=== PATIENT | female | born 1955 | race Caucasian/White ===

== ENCOUNTER → 2016-12-26 | Outpatient (CLI) | payer BC ==
--- NOTE | ~2016-12-26 | CT57 ---
[facility] RADIOLOGY TEXT RESULTS PATIENT: DAVID TINOCO LOCATION: [facility] : 57 UNIT #: [id number] AGE: [address]: Antonio Acosta MD SEX: F ORDER DR: [id number] [facility]. [place], [place] [address] [id number] O MR#: [id number] Acc #: [id number] NAME: DAVID TINOCO : 1955 SEX: F STUDY DATE/TIME: 12/26/2016 11:24 UNIT: [facility] ROOM: STUDY DESCRIPTION: CT Chest Wo Cont Attending Physician: Antonio Acosta M.D. Referring Physician: Antonio Acosta M.D. Ordering Physician: Antonio Acosta M.D. Primary Care Physician: Generic Doctor Not In System MEDICAL IMAGING REPORT This report is preliminary unless electronic signature is present EXAM Chest CT without contrast high resolution. HISTORY Bronchiectasis with chronic asthma. Evaluate for progression of interstitial lung disease over time. COMPARISON 02/07/2016. TECHNIQUE Axial imaging was obtained through the chest with high-resolution technique Both prone and supine. Expiration imaging was performed at multiple sites as well. Images were evaluated at lung and mediastinal windows. This CT exam was performed with one or more of the following radiation dose reduction techniques: Automatic exposure control, adjustment of mA and/or kV according to patient size, and iterative reconstruction. FINDINGS Chest images at mediastinal window show no enlarged mediastinal or hilar lymph nodes. There is no evidence of pleural or pericardial fluid. Images at lung window show a mild as central bronchiectasis in both lower lobes. This has not progressed significantly since the previous examination. There is no evidence of mucus plugging and no new infiltrates are seen. Linear plate-like atelectasis at the right base seen on the previous examination has resolved. No significant air trapping is seen on expiration imaging. IMPRESSION Mild central bronchiectasis bilaterally predominately in the lower lobes showing no significant change from previous exam. No new infiltrates are [facility] RADIOLOGY TEXT RESULTS PATIENT: DAVID TINOCO LOCATION: [facility] #: [id number] : 57 UNIT #: [id number] AGE: [address]: Antonio Acosta MD SEX: F ORDER DR: seen. The lungs are clear otherwise. STAT * RESULT Dictated by... Dakota Hampton M.D. THIS IS AN ELECTRONICALLY VERIFIED REPORT Dakota Hampton M.D. at 12/27/2016 10:23 AM JANNETTE/alexy TD: 12/26/2016 12:12 JOB #: [id number] MEDICAL IMAGING REPORT Page 1 of 1 COPY
== END | disposition home or self-care (01) ==
LOC: CCAT 10:50
DX: J45.909 Unspecified asthma, uncomplicated (principal); J47.9 Bronchiectasis, uncomplicated
CPT/HCPCS: 71250